=== PATIENT | female | born 1980 | race African-American/Black ===

== ENCOUNTER 2020-12-01 03:02 | Outpatient (CLI) | payer OTHER ==
[~2020-12-01] VITALS: Ht 165.1 cm; Wt 74.6 kg
[2020-12-01 03:21] VITALS: BP 115/76
[2020-12-01] MEDS ORDERED: MULTTAB20 PO (04:17)
[2020-12-01] MEDS ORDERED: DICL10TA PO (04:17)
[2020-12-01] MEDS ORDERED: LR 1,000 ML IV ONE (04:20)
[2020-12-01] MEDS ORDERED: LR 1,000 ML IV SCH (04:20)
[2020-12-01 05:21] LABS: HEMATOCRIT 34.4 % (36.0-47.0); HEMOGLOBIN 10.3 g/dl (12.0-15.5); MEAN CORPUSCULAR HEMOGLOBIN 25.2 pg (27.0-33.0); MEAN CORPUSCULAR HGB CONC 29.9 g/dl (32.0-36.5); MEAN CORPUSCULAR VOLUME 84.3 fl (80.0-96.0); PLATELET COUNT, AUTOMATED 225 10^3/uL (150-450); RED BLOOD COUNT 4.08 10^6/uL (4.00-5.40); WHITE BLOOD COUNT 9.3 10^3/uL (4.0-10.0)
[2020-12-01 06:13] VITALS: BP 102/60
[2020-12-01 07:05] VITALS: BP 128/78
[2020-12-01] MEDS ORDERED: TERBUTALINE SULFATE 1 MG/ML VIAL (J3105) SC ONE (07:25)
[2020-12-01 07:40] VITALS: BP 108/70
[2020-12-01 08:51] VITALS: BP 120/68
== END 2020-12-01 09:10 | disposition home or self-care (01) ==
LOC: M LDO 03:02
PROVIDERS: ATTEND Obstetrics & Gynecology
DX: O99.283 Endocrine, nutritional and metabolic diseases complicating pregnancy, third trimester (principal); E86.0 Dehydration; O26.893 Other specified pregnancy related conditions, third trimester; R10.30 Lower abdominal pain, unspecified; R25.2 Cramp and spasm; Z3A.35 35 weeks gestation of pregnancy; O09.523 Supervision of elderly multigravida, third trimester
CPT/HCPCS: 59025; 76815; 81001; 85027; 96360; 96361; G0378; G0463; J3105

== ENCOUNTER 2020-12-12 04:17 | Inpatient (IN) | payer OTHER ==
[2020-12-12] VITALS (49 sets, daily range): BP systolic 98–149; BP diastolic 57–92
[~2020-12-12] VITALS: Ht 165.1 cm; Wt 76.8 kg
[~2020-12-12 04:17] MED LIST: DICL10TA PO; MULTTAB20 PO
[2020-12-12] MEDS ORDERED: LR 1,000 ML IV SCH (05:40)
[2020-12-12 06:19] LABS: HEMATOCRIT 35.3 % (36.0-47.0); HEMOGLOBIN 10.5 g/dl (12.0-15.5); MEAN CORPUSCULAR HEMOGLOBIN 24.8 pg (27.0-33.0); MEAN CORPUSCULAR HGB CONC 29.7 g/dl (32.0-36.5); MEAN CORPUSCULAR VOLUME 83.5 fl (80.0-96.0); PLATELET COUNT, AUTOMATED 218 10^3/uL (150-450); RED BLOOD COUNT 4.23 10^6/uL (4.00-5.40); WHITE BLOOD COUNT 11.4 10^3/uL (4.0-10.0)
[2020-12-12] MEDS ORDERED: BUTORPHANOL 2 MG/ML INJ (J0595) IV PRN (08:10)
[2020-12-12] MEDS ORDERED: PROMETHAZINE INJ 25 MG/ML VIAL (J2550) IV PRN (08:10)
[2020-12-12] MEDS ORDERED: OXYTOCIN DRIP 30 UNITS in IV 1 EA IV SCH (08:10)
--- NOTE | 2020-12-12 08:27 | IPNPDOC ---
Text Note Date of Service The patient was seen on 12/12/20. NOTE Intrapartum Note I assumed care of Pio at 0730 this morning. In brief, she is a 40yo at 37w4d who presented with PROM at 0330 this morning, clear. She has a history of prior section for arrest of dilation at 41wk in 2008 and desires a TOLAC after counseling on admission by RAFIA Kraus. Her PMhx is otherwise unremarkable. It has been approximately 5hr since ROM and she is not yet having regular ctx. Not uncomfortable. Fluid remains clear. Vitals wnl, afebrile SCE: fingertip/thick/-3, posterior Cat I FHRT with +accels/-decels/mod janina I discussed patient's SCE with her in the setting of desired TOLAC. Discussed that we need to start augmenting her labor given the risk for infection now that she has ROM. Discussed we canNOT use cytotec and cannot yet place grullon bulb based on her dilation. My recommendation is to begin pitocin which patient is amenable to. Discussed options for pain control, IV pain medications in latent labor and epidural in active labor. Answered all of her questions. Safe to proceed Linda Leslie MD VSHeather, I+O VSHeather I+O Laboratory Tests 12/12/20 05:32 Vital Signs Date Time Temp Pulse Resp B/P (MAP) Pulse Ox O2 Delivery O2 Flow Rate FiO2 12/12/20 07:23 97.3 75 16 126/78 (94) Room Air Linda Leslie MD Dec 12, 2020 08:27
--- NOTE | 2020-12-12 09:21 | HPE ---
HISTORY AND PHYSICAL DATE OF ADMISSION: 12/12/2020 HISTORY OF PRESENT ILLNESS: Pio is a 40-year-old 2 para 1-0-0-1 at 37 and 3/7th weeks gestation, EDC of 12/30/2020 based on first trimester ultrasound. She presents to Labor and Delivery today as an unregistered patient. Her care is provided at [facility] in [place], [place]. She reports that she had spontaneous rupture of membranes at approximately 0300 for clear fluid. She reports contractions have just started in the last hour. She denies having vaginal bleeding. She does report continued leakage of fluid and the fetus has been active. Her care was initiated at [facility] in the first trimester. Her course complicated by advanced maternal age and prior section. The plan was for a repeat section at term as [facility] does not participate in trial of labor after until most recently when she decided she preferred a trial of labor after section. OBSTETRIC HISTORY: 07/30/2009: Primary section for failure to progress delivering an 8 pound male at 41 weeks gestation. OBSTETRIC LABS: O positive, antibody screen negative, Pap was normal, rubella immune, VDRL nonreactive, hepatitis B surface antigen negative, HIV negative, chlamydia and gonorrhea negative. Gestational diabetic screening elevated at 148. A three hour glucose tolerance test normal. Fasting was 79, 1 hour 138, 2 hour 107, and 3 hour of 100. Her GBS is negative. I do not see a hepatitis C antibody ordered or received. PAST MEDICAL HISTORY: Childhood varicella. PAST SURGICAL HISTORY: section. FAMILY HISTORY: Cerebrovascular accident, gastrointestinal cancer and ovarian cancer. SOCIAL HISTORY: The patient is single, however the father of the baby is at bedside and supportive. 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 She is nonsmoker. She denies alcohol and drug use. She does report a positive history of an abnormal Pap with HPV. She denies a history of abuse, physical, sexual and emotional. ALLERGIES: No known drug allergies. CURRENT MEDICATIONS: 1. Diclegis. 2. vitamin. OBJECTIVE: Temperature is 97.3, pulse 81, blood pressure is 117/73. She appears mildly uncomfortable with her contractions. She does grimace with each contraction. heart rate is 130 with moderate variability and positive accelerations, negative decelerations, contractions are every 4 hours. They do palpate mild. Her abdomen is gravid, cephalic presentation, confirmed with Dashawn's maneuver as well as bedside ultrasound. Estimated weight 6.5 pounds. Sterile speculum exam deferred as the patient is grossly ruptured leaking clear fluid continuously. Sterile vaginal exam: The patient does not tolerate the exam well, the presenting part is -3 station and the cervix is far posterior, unable to be determined due to the patient's resistance and discomfort with her exam. ASSESSMENT: Intrauterine at 37 and 3/7th weeks. heart rate Category 1, spontaneous rupture of membranes, trial of labor after section. PLAN: After reviewing risks, benefits and alternatives with the patient, she and her partner had all of their questions answered regarding trial of labor after sections. The patient still continues to desire trial of labor after section. Routine labs have been ordered, continuous electronic monitoring, NPO diet at this time. The patient may be out of bed and use bathroom privileges. She has been verbally consented for emergency surgery and blood products if they are necessary. Will observe for labor progress at this time.
[2020-12-12] MEDS ORDERED: FENTANYL 2MCG/ML ROPIVACAINE 0.2% IN 0.9% NACL 100ML IVBAG As Ordered ONE (16:07)
[2020-12-12] MEDS: FENTANYL/ROPIVACAINE/NACL BAG 100 ML EPIDURAL SCH (16:27)
[2020-12-12] MEDS ORDERED: NALOXONE INJ 0.4MG/1ML VIAL (J2310 PER 1MG) IV PRN (16:55)
[2020-12-12] MEDS ORDERED: EPIDURAL/PCA KEYS XX PRN (16:55)
[2020-12-12] MEDS ORDERED: REFRIGERATOR IV KEYS XX PRN (16:55)
[2020-12-12] MEDS ORDERED: EPIDURAL COMMENT XX SCH (16:55)
[2020-12-12] MEDS ORDERED: ePHEDrine SULFATE 25 MG/5 ML(5MG/ML) SYRINGE IV PRN (16:55)
[2020-12-12] MEDS ORDERED: diphenhydrAMINE 50MG/ML VIAL (J1200) IV PRN (16:55)
[2020-12-12] MEDS ORDERED: LACTATED RINGER'S 1000 ML IV PRN (16:55)
--- NOTE | 2020-12-12 17:32 | IPNPDOC ---
Text Note Date of Service The patient was seen on 12/12/20. NOTE Intrapartum Note Pt doing well now that she received epidural and has good pain relief. Fluid remains clear. IV pitocin is at 12mu. Receiving 300ml IVF bolus for some minimal variability on FHRT, otherwise there are accels and no decels. SCE now 3-4/75/-2, hair palpable. Plan to continue to titrate pitocin per protocol Will continue to closely observe Plan to recheck in 4hr or earlier as indicated Safe to proceed Linda Leslie MD VS,Heather, I+O VSHeather I+O Laboratory Tests 12/12/20 05:32 Vital Signs Date Time Temp Pulse Resp B/P (MAP) Pulse Ox O2 Delivery O2 Flow Rate FiO2 12/12/20 16:45 78 116/74 (88) 12/12/20 16:02 16 12/12/20 15:08 97.4 Room Air 12/12/20 14:43 82 Linda Leslie MD Dec 12, 2020 17:32
[2020-12-12] MEDS ORDERED: CALCIUM CARBONATE 500 MG CHEW U/D PO ONE (19:50)
[2020-12-12] MEDS ORDERED: PYRIDOXINE 50 MG TAB PO SCH (22:40)
[2020-12-12] MEDS: ONDANSETRON 4MG/2ML VIAL IV PRN (22:42)
--- NOTE | 2020-12-12 23:08 | IPNPDOC ---
Text Note Date of Service The patient was seen on 12/12/20. NOTE Intrapartum Note Pt doing well overall. Recently had an episode of emesis. Pain well controlled with epidural. Vitals wnl overall, afebrile Cat I FHRT with +accels, -decels, mod janina [place]: ctx q2-3min SCE: /-2, bloody show noted Will plan to continue to titrate pitocin for adequate ctx pattern IV zofran and oral vitamin B6 for nausea Continue to closely monitor Plan to recheck in 2-4hr or earlier as indicated Safe to proceed Linda Leslie MD VS,Heather I+O VS, Augustina Romero+O Laboratory Tests 12/12/20 05:32 Vital Signs Date Time Temp Pulse Resp B/P (MAP) Pulse Ox O2 Delivery O2 Flow Rate FiO2 12/12/20 17:46 83 98/60 (73) 12/12/20 16:02 16 12/12/20 15:08 97.4 Room Air 12/12/20 14:43 82 Linda Leslie MD Dec 12, 2020 23:08
[2020-12-13] VITALS (28 sets, daily range): BP systolic 109–141; BP diastolic 61–98
[2020-12-13] MEDS: FENTANYL/ROPIVACAINE/NACL BAG 100 ML EPIDURAL SCH ×2 (00:22→10:29)
[2020-12-13] MEDS: ONDANSETRON 4MG/2ML VIAL IV PRN (03:29)
--- NOTE | 2020-12-13 04:52 | IPNPDOC ---
Text Note Date of Service The patient was seen on 12/13/20. NOTE Intrapartum Note Pio is doing well, pain still overall well controlled with epidural. By nurse check at 0330 was 9/C/0. Vitals wnl, afebrile Cat I FHRT with +accels, -decels, mod janina [place]: ctx q4min SCE: C/C/0, bladder grullon balloon pushed up past head to allow descent Plan to do passive descent x1hr and then begin pushing Continue pitocin to titrate to adequate MVUs Continue to closely monitor Safe to proceed Linda Leslie MD VS,Heather, I+O VS, Heather I+O Laboratory Tests 12/12/20 05:32 Vital Signs Date Time Temp Pulse Resp B/P (MAP) Pulse Ox O2 Delivery O2 Flow Rate FiO2 12/13/20 04:05 108 117/61 (79) 12/13/20 04:00 98.4 12/13/20 03:59 18 12/12/20 15:08 Room Air 12/12/20 14:43 82 I&O- Last 24 Hours up to 6 AM 12/13/20 06:00 Intake Total 0 ml Output Total 1500 ml Balance -1500 ml Linda Leslie MD Dec 13, 2020 04:51
--- NOTE | 2020-12-13 08:56 | IPNPDOC ---
Text Note Date of Service The patient was seen on 12/13/20. NOTE Progress Has been pushing x 3 hours plus one hour labor down No descent of presenting part with poor maternal efforts, -1 station FH 150, Cat I UC 2-4 minutes x [address] Grider. Dr Zavala in building and aware of pt status VS,Fishbone, I+O VS, Fishbone, I+O Vital Signs Date Time Temp Pulse Resp B/P (MAP) Pulse Ox O2 Delivery O2 Flow Rate FiO2 12/13/20 07:27 94 130/81 (97) 12/13/20 06:00 98.9 18 12/12/20 15:08 Room Air 12/12/20 14:43 82 I&O- Last 24 Hours up to 6 AM 12/13/20 05:59 Intake Total 1100 ml Output Total 1500 ml Balance -400 ml Virgie Thakkar CNM Dec 13, 2020 08:56
[2020-12-13] MEDS ORDERED: TRANEXAMIC ACID INJection 1,000 MG in NS 100 ML IV PRN (10:15)
[2020-12-13] MEDS ORDERED: BICITRA 30ML SOLN UDC PO ONE (10:15)
[2020-12-13] MEDS ORDERED: CARBOPROST TROMETHAMINE 250 MCG/ML AMP IM PRN (10:15)
[2020-12-13] MEDS ORDERED: ceFAZolin SOD 2 GM in IV 1 EA IV ONE (10:15)
[2020-12-13] MEDS ORDERED: OXYTOCIN DRIP 30 UNITS in IV 1 EA IV PRN ×6 (10:15)
[2020-12-13] MEDS ORDERED: LIDOCAINE 1% MDV 20ML VIAL INFIL PRN (10:15)
[2020-12-13] MEDS ORDERED: OXYTOCIN INJ 10 UNITS/ML VIAL (J2590) IM PRN (10:15)
[2020-12-13] MEDS ORDERED: AZITHROMYCIN INJ 500 MG, VIAL MATE ADAPTER 1 EACH in NS 250 ML IV ONE (10:15)
[2020-12-13] MEDS ORDERED: METHYLERGONOVINE MALEATE 0.2 MG/ML VIAL (J2210) IM PRN (10:15)
[2020-12-13] MEDS ORDERED: OXYTOCIN INJ 10 UNITS/ML VIAL (J2590) IV PRN (10:15)
[2020-12-13] MEDS ORDERED: BICITRA 30ML SOLN UDC As Ordered ONE (10:21)
[2020-12-13] MEDS ORDERED: ceFAZolin 2 GM/D5W 50 ML IV BAG (J0690 PER 500MG) As Ordered ONE (10:21)
[2020-12-13] MEDS ORDERED: LIDOCAINE 2% W/EPINEPHRINE 20ML VIAL **PRES FREE As Ordered ONE (10:48)
[2020-12-13] MEDS ORDERED: MORPHINE PRES-FREE INJ 10 MG/10 ML VIAL (J2274) As Ordered ONE (10:48)
[2020-12-13] MEDS ORDERED: ONDANSETRON 4MG/2ML VIAL As Ordered ONE (10:48)
[2020-12-13] MEDS ORDERED: FAMOTIDINE/NS 20 MG/50 ML BAG (S0028) As Ordered ONE (10:49)
[2020-12-13] MEDS ORDERED: METOCLOPRAMIDE INJ 10MG/2ML VIAL (J2765 PER 1) IV PRN ×2 (11:08→12:25)
[2020-12-13] MEDS ORDERED: NALBUPHINE HCL 10 MG/ML AMP (J2300) IV PRN (11:08)
[2020-12-13] MEDS ORDERED: NALOXONE INJ 0.4MG/1ML VIAL (J2310 PER 1MG) IV PRN ×2 (11:08)
[2020-12-13] MEDS ORDERED: ONDANSETRON 4MG/2ML VIAL IV PRN ×3 (11:08→12:25)
[2020-12-13] MEDS ORDERED: ACETAMINOPHEN 1000MG 100ML IV BTL (OFIRMEV) (J0131 PER 10MG) As Ordered ONE (11:17)
[2020-12-13] MEDS ORDERED: OXYTOCIN DRIP 30 UNITS in IV 1 EA IV SCH (11:58)
[2020-12-13 11:59] LABS: CORD GAS ABE V -5.9; CORD GAS O2 SAT V 59.1 %; CORD GAS PCO2 V 58.5 mmHg; CORD GAS PH V 7.212 UNITS; CORD GAS SBC V 18.8 MEQ/L; CORD GAS TCO2 V 24.8 MEQ/L
[2020-12-13] MEDS ORDERED: RHOGAM 300 MCG (1500 IU) INJ (J2790) IM SCH (12:00)
[2020-12-13] MEDS ORDERED: MEASLES,MUMPS,RUBELLA VACCINE INJ (MMR-II) (90707) SC SCH (12:00)
[2020-12-13] MEDS ORDERED: PERCOCET 5MG/325MG TAB PO PRN ×2 (12:00)
[2020-12-13] MEDS ORDERED: OXYTOCIN 30 UNITS IN 0.9% NaCl 500ML IV BAG (J2590) As Ordered ONE (12:02)
--- NOTE | 2020-12-13 12:20 | ROOPDOC ---
[facility] Report Of Operation Report of Operation DATE OF PROCEDURE: 12/13/2020 PREPROCEDURE DIAGNOSES:. Arrest of descent, 37+ weeks gestation, prolonged rupture of membranes, unsuccessful trial of labor after POSTPROCEDURE DIAGNOSES: Same PROCEDURE: Repeat low transverse section SURGEON: Didier Grider DO FACOG ENGRAVER RUBBER: Rodney Kraus CNM (Essential role in retraction, extraction, and closure of all tissue layers) ANESTHESIA: Epidural ESTIMATED BLOOD LOSS: 500 mL. IV FLUIDS: 1300 mL LR URINE OUTPUT: 150 mL COMPLICATIONS: None. PREOPERATIVE ANTIBIOTICS: Ancef 2g IV x 1, Azithromycin 500mg IV COMPLICATIONS: none DATA: Apgars 2 and 9. Birthweight 2778 g. 6lbs 2oz. Male. SPECIMENS: none PRIMARY INDICATION FOR : Arrest of descent DESCRIPTION OF PROCEDURE: The patient was counseled on the risks, benefits, indications and alternatives of the procedure. Informed consent was obtained. She was taken to the operating room with IV running and placed on the operating table in the dorsal supine position with a leftward tilt. Regional anesthesia was found to be adequate. Sequential compression devices were placed on the lower extremities. A Garnica catheter was placed under sterile conditions. She was prepared and draped in normal sterile fashion. A time out was performed per protocol. Regional anesthesia was again found to be adequate. A Pfannenstiel skin incision was made with the 10 blade. The 10 blade was used to dissect down to the level of the rectus sheath fascia. The rectus sheath pressure was incised midline and this was extended bilaterally with Summers scissors , and manual stretch. The rectus muscle bellies were dissected off the rectus sheath fascia superiorly and inferiorly using both sharp and blunt dissection. The midline was identified. The peritoneum was identified and entered digitally. The peritoneal opening was extended with manual stretch. The Mobius retractor was placed. The vesicouterine peritoneum was dissected with Metzenbaum scissors to create the bladder flap. A low transverse uterine incision was made with the 10 blade. This was extended with manual stretch. The amniotic sac was punctured, and clear fluid was noted. The baby delivered through the hysterotomy without difficulty. The cord was doubly clamped and cut, and the baby was handed off to awaiting care. data shown above. The placenta was removed manually. Cord gas obtained after the delivery of the placenta. A brisk uterine arterial bleed was noted on the right side, and this was quickly clamped. The intrauterine cavity was cleared of all clot and debris. The hysterotomy was closed with 0 Vicryl in running locked fashion. This was reinforced with a second imbricating layer using 0 Monocryl in running fashion. Excellent hemostasis of the hysterotomy was noted. The pelvis was irrigated and the fluid suctioned. The Mobius retractor was removed. The peritoneum was closed with 3-0 Vicryl running fashion. The rectus muscle bellies were reapproximated with interrupted stitches using 3-0 Vicryl. The rectus muscles bellies were hemostatic. The rectus sheath fascia was closed with 0 Vicryl running fashion. The subcutaneous layer was irrigated and the fluid suctioned. Small bleeding vessels were cauterized with Bovie. Excellent hemostasis was noted. The subcutaneous layer was reapproximated with 3-0 Vicryl running fashion. Skin was closed with 3-0 Monocryl in subcuticular fashion. An Optifoam bandage was placed over the closed incision. Sponge, needle and instrument counts were correct per protocol throughout the procedure. The patient tolerated the entire procedure very well. She was transferred to the PACU in stable condition. DO JAIME Stein JONATHAN R. DO Dec 13, 2020 12:20
[2020-12-13] MEDS ORDERED: fentaNYL 100 MCG/2 ML INJECTION (J3010) As Ordered ONE (12:22)
[2020-12-13] MEDS ORDERED: oxyCODONE 5MG TAB PO PRN (12:25)
[2020-12-13] MEDS ORDERED: KETOROLAC 30 MG/ML 1ML VIAL IV PRN (12:25)
[2020-12-13] MEDS ORDERED: MEPERIDINE INJ 25 MG/ML VIAL (J2175) IV PRN (12:25)
[2020-12-13] MEDS ORDERED: LR 1,000 ML IV SCH (12:25)
[2020-12-13] MEDS: fentaNYL 100 MCG/2 ML INJECTION (J3010) IV PRN ×4 (12:27→13:07)
[2020-12-13] MEDS ORDERED: KETOROLAC 30 MG/ML 1ML VIAL As Ordered ONE (12:36)
[2020-12-13] MEDS: diphenhydrAMINE 50MG/ML VIAL (J1200) IV PRN ×2 (14:18→22:57)
[2020-12-13] MEDS ORDERED: IBUP80TA PO (15:55)
[2020-12-13] MEDS ORDERED: PERCOCET PO (15:55)
[2020-12-13] MEDS ORDERED: DOK1CAP7 PO (15:55)
[2020-12-13] MEDS: KETOROLAC 30 MG/ML 1ML VIAL IV SCH (18:14)
[2020-12-13] MEDS: DOCUSATE SODIUM 100MG CAPSULE PO SCH (21:07)
[2020-12-13] MEDS: SIMETHICONE 80MG CHEW TAB PO PRN (21:46)
[2020-12-14] MEDS: KETOROLAC 30 MG/ML 1ML VIAL IV SCH ×2 (00:20→06:00)
[2020-12-14 02:00] VITALS: BP 97/58
[2020-12-14 05:50] VITALS: BP 121/71
[2020-12-14] MEDS ORDERED: diphenhydrAMINE CREAM 30GM TOP PRN (07:10)
--- NOTE | 2020-12-14 07:14 | IPNPDOC ---
Text Note Date of Service The patient was seen on 12/14/20. NOTE PO #1 Major complaint is itching. Reports adequate pain management. Has been OOB to NICU. Grullon draining clear yellow urine. Denies flatus. VSS, afebrile, normotensive. Breasts soft, nipples intact Fundus firm, NT Dressing intact, scant old drainage Lochia rubra scant without odor Legs negative PO#1 Claritin daily with benadryl cream to reduce sleepiness. Remove grullon. Slowly increase diet. Routine care. VS,Fishbone, I+O VS, Fishbone, I+O Vital Signs Date Time Temp Pulse Resp B/P (MAP) Pulse Ox O2 Delivery O2 Flow Rate FiO2 12/14/20 05:50 97.5 101 18 121/71 (88) 100 Room Air I&O- Last 24 Hours up to 6 AM 12/14/20 06:00 Intake Total 1990 ml Output Total 1770 ml Balance 220 ml Virgie Thakkar CNM Dec 14, 2020 07:14
[2020-12-14 07:55] LABS: HEMOGLOBIN 8.2 g/dl (12.0-15.5); MEAN CORPUSCULAR HEMOGLOBIN 25.4 pg (27.0-33.0); MEAN CORPUSCULAR HGB CONC 30.4 g/dl (32.0-36.5); MEAN CORPUSCULAR VOLUME 83.6 fl (80.0-96.0); PLATELET COUNT, AUTOMATED 188 10^3/uL (150-450); RED BLOOD COUNT 3.23 10^6/uL (4.00-5.40); WHITE BLOOD COUNT 15.2 10^3/uL (4.0-10.0)
[2020-12-14 10:00] VITALS: BP 108/64
[2020-12-14] MEDS: SIMETHICONE 80MG CHEW TAB PO PRN ×3 (10:10→22:23)
[2020-12-14] MEDS: PRENATAL VITAMINS CHEWABLE TABLET PO SCH (10:10)
[2020-12-14] MEDS: DOCUSATE SODIUM 100MG CAPSULE PO SCH ×2 (10:10→20:33)
[2020-12-14] MEDS: LORATADINE 10 MG TAB PO SCH (10:24)
[2020-12-14] MEDS: IBUPROFEN 800 MG TAB PO SCH ×2 (13:30→20:33)
[2020-12-14 14:00] VITALS: BP 111/66
[2020-12-14] MEDS: ACETAMINOPHEN 500 MG TAB PO PRN (17:52)
[2020-12-14 18:00] VITALS: BP 118/71
[2020-12-14 21:46] VITALS: BP 107/59
[2020-12-15 02:01] VITALS: BP 128/61
[2020-12-15] MEDS ORDERED: OXYTOCIN 30 UNITS IN 0.9% NaCl 500ML IV BAG (J2590) As Ordered ONE (05:55)
[2020-12-15] MEDS: IBUPROFEN 800 MG TAB PO SCH ×3 (06:04→22:05)
[2020-12-15 06:12] VITALS: BP 119/65
--- NOTE | 2020-12-15 08:42 | DS.PDOC ---
Discharge Summary General Date of Admission Dec 12, 2020 at 04:57 Date of Discharge 12/15/20 Vital Signs/I&Os Vital Signs Date Time Temp Pulse Resp B/P (MAP) Pulse Ox O2 Delivery O2 Flow Rate FiO2 12/15/20 06:12 97.8 77 18 119/65 (83) 98 12/15/20 02:01 Room Air I&O- Last 24 Hours up to 6 AM 12/15/20 06:00 Output Total 400 ml Balance -400 ml Discharge Medications Scheduled Docusate Sodium (Dok) 100 Mg Capsule, 100 MG PO BID Ibuprofen (Ibuprofen) 800 Mg Tablet, 800 MG PO Q8H No122/Iron/Folic Acid ( Multi Tablet) 1 Each Tablet, 1 TAB PO DAILY, (Reported) Scheduled PRN Oxycodone/Acetaminophen (Oxycodone-Acetaminophen 5-325) 1 Each Tablet, 1 TAB PO Q4H PRN for MILD/MODERATE PAIN (PS 1-7) Allergies Coded Allergies: No Known Allergies (Unverified , 12/01/20) YASMIN LEWIS DO Dec 15, 2020 08:42
--- NOTE | 2020-12-15 09:33 | IPNPDOC ---
Progress Note Date of Service: Dec 15, 2020 Day#: 2 Progress Note SUBJECT: Status post PLTCS She has been ambulating, voiding spontaneously without issue and tolerating regular diet. Lochia decreasing/minimal. Pain is well-controlled. Incision bandage is clean/unsaturated. Denies headache, visual changes, right upper quadrant pain, shortness of breath or chest pain. OBJECTIVE: VITAL SIGNS: Within normal limits, afebrile. Alert and oriented times three. Abdomen: Fundus firm at U-2. Soft, NTTP. Incision bandage not soaked through ASSESSMENT: Status post uncomplicated PLTCS. Vitals within normal limits, afebrile, hemodynamically stable with no evidence of infection. PLAN: Discharge to home tomorrow Routine /postoperative advancement Postoperative instructions/precautions reviewed. Routine PP visit at 2 and 6 weeks in clinic. VS, I&O, 24H, Fishbone Vital Signs/I&O Vital Signs Date Time Temp Pulse Resp B/P (MAP) Pulse Ox O2 Delivery O2 Flow Rate FiO2 12/15/20 06:12 97.8 77 18 119/65 (83) 98 12/15/20 02:01 Room Air I&O- Last 24 Hours up to 6 AM 12/15/20 06:00 Output Total 400 ml Balance -400 ml Laboratory Data 24H LABS Vital Signs Date Time Temp Pulse Resp B/P (MAP) Pulse Ox O2 Delivery O2 Flow Rate FiO2 12/15/20 06:12 97.8 77 18 119/65 (83) 98 12/15/20 02:01 97.8 96 19 128/61 (83) 99 Room Air 12/14/20 22:53 15 12/14/20 22:23 17 12/14/20 21:46 98.6 95 18 107/59 (75) 99 Room Air 12/14/20 18:00 99.0 109 18 118/71 (87) 100 Room Air 12/14/20 14:00 98.5 103 17 111/66 (81) 100 Room Air 12/14/20 10:00 97.9 102 15 108/64 (79) 98 Room Air Intake & Output 12/15/20 06:00 Output Total 400 ml Balance -400 ml Current Medications Medications (Trade) Dose Ordered Sig/Latonya Route PRN Reason Start Time Stop Time Status Last Admin Dose Admin Acetaminophen (Tylenol Tab) 1,000 mg Q6HP PRN PO PAIN LEVEL 6-10 12/13/20 12:00 12/14/20 17:52 1,000 MG Diphenhydramine HCl (Benadryl Cream) Q6HP PRN TOP ITCHING 12/14/20 07:10 12/14/20 10:10 1 DOSE Docusate Sodium (Colace) 100 mg BID PO 12/13/20 21:00 12/14/20 20:33 100 MG Ibuprofen (Advil) 800 mg Q8H PO 12/14/20 14:00 12/15/20 06:04 800 MG Loratadine (Claritin) 10 mg DAILY PO 12/14/20 09:00 12/14/20 10:24 10 MG Oxycodone/ Acetaminophen (Percocet 5mg/ 325mg Tablet) 1 tab Q4H PRN PO MILD/MODERATE PAIN (PS 1-7) 12/13/20 12:00 12/14/20 22:23 1 TAB Prenat Multivit/ Thread Grinder/Iron/Folic Ac ( Vitamins) 1 tab DAILY PO 12/14/20 09:00 12/14/20 10:10 1 TAB Simethicone (Mylicon) 80 mg QID PRN PO GAS PAIN 12/13/20 12:00 12/14/20 22:23 80 MG CBC/BMP Laboratory Tests 12/14/20 07:36 YASMIN LEWIS DO Dec 15, 2020 09:33
[2020-12-15] MEDS: ACETAMINOPHEN 500 MG TAB PO PRN (09:41)
[2020-12-15] MEDS: PRENATAL VITAMINS CHEWABLE TABLET PO SCH (09:42)
[2020-12-15] MEDS: LORATADINE 10 MG TAB PO SCH (09:42)
[2020-12-15] MEDS: DOCUSATE SODIUM 100MG CAPSULE PO SCH ×2 (09:42→22:06)
[2020-12-15] MEDS: SIMETHICONE 80MG CHEW TAB PO PRN ×2 (09:42→22:05)
[2020-12-15 10:00] VITALS: BP 110/74
[2020-12-16 06:00] VITALS: BP 115/67
[2020-12-16] MEDS: IBUPROFEN 800 MG TAB PO SCH ×2 (06:43→14:34)
--- NOTE | 2020-12-16 07:11 | DS.PDOC ---
Discharge Summary General Date of Admission Dec 12, 2020 at 04:57 Date of Discharge 12/16/20 Discharge Summary DATE OF ADMISSION: 12/12/2020 DATE OF DISCHARGE: 12/16/2020 ADMISSION DIAGNOSIS:. 37+ weeks gestation, prelabor rupture of membranes DISCHARGE DIAGNOSIS: Same as above, prolonged rupture of membranes, arrest of descent in the second stage of labor, status post primary low transverse section DISCHARGE SUMMARY: The patient was admitted at, 37+ weeks gestation with a diagnosis of pre-labor rupture of membranes.. Her labor course was complicated by arrest of descent in the second stage of labor and prolonged rupture of membranes. This prompted a section. The section delivery was uncomplicated. Her postoperative course was uncomplicated as well. On posto perative day #3, she was meeting all discharge criteria. PHYSICAL EXAMINATION ON DATE OF DISCHARGE: Normotensive. Normal heart rate. Afebrile. HEART: Regular rate and rhythm. No murmurs, gallops, or rubs. LUNGS: Clear to auscultation bilaterally. ABDOMEN: Soft, nontender, nondistended. Incision bandage clean and dry. EXTREMITIES: Nonedematous, nontender. She was meeting all discharge criteria on postoperative day #3. We reviewed routine fever, infectious, pain, and bleeding precautions. She is to followup in 2 weeks for incision check. Her postoperative medications are Percocet, Motrin, and Colace. Vital Signs/I&Os Vital Signs Date Time Temp Pulse Resp B/P (MAP) Pulse Ox O2 Delivery O2 Flow Rate FiO2 12/16/20 06:00 98.0 72 18 115/67 (83) 12/15/20 10:00 100 Room Air I&O- Last 24 Hours up to 6 AM 12/16/20 06:00 Intake Total 400 ml Balance 400 ml Discharge Medications Scheduled Docusate Sodium (Dok) 100 Mg Capsule, 100 MG PO BID Ibuprofen (Ibuprofen) 800 Mg Tablet, 800 MG PO Q8H No122/Iron/Folic Acid ( Multi Tablet) 1 Each Tablet, 1 TAB PO DAILY, (Reported) Scheduled PRN Oxycodone/Acetaminophen (Oxycodone-Acetaminophen 5-325) 1 Each Tablet, 1 TAB PO Q4H PRN for MILD/MODERATE PAIN (PS 1-7) Allergies Coded Allergies: No Known Allergies (Unverified , 12/01/20) YASMIN ELWIS DO Dec 16, 2020 07:11
[2020-12-16] MEDS: DOCUSATE SODIUM 100MG CAPSULE PO SCH (08:57)
[2020-12-16] MEDS: LORATADINE 10 MG TAB PO SCH (08:57)
[2020-12-16] MEDS: PRENATAL VITAMINS CHEWABLE TABLET PO SCH (08:57)
== END 2020-12-16 15:28 | disposition home or self-care (01) | DRG 540 ==
LOC: M LDO 04:17 → M LDI 04:57 → M OBS 12-13 13:58
PROVIDERS: ADMIT Advanced Practice Midwife; ATTEND Advanced Practice Midwife
PROC: 10D00Z1 Extraction of Products of Conception, Low, Open Approach (ICD-10-PCS; principal; 2020-12-13 11:01)
DX: O42.12 Full-term premature rupture of membranes, onset of labor more than 24 hours following rupture (principal); Z3A.37 37 weeks gestation of pregnancy; O34.211 Maternal care for low transverse scar from previous cesarean delivery; O66.41 Failed attempted vaginal birth after previous cesarean delivery; O62.1 Secondary uterine inertia; Z37.0 Single live birth

== ENCOUNTER → 2021-02-28 | Outpatient (REF) | payer OTHER ==
[~2021-02-28] MED LIST changes: +DOK1CAP7 PO; +IBUP80TA PO; +PERCOCET PO
== END ==
LOC: M PLALAB 12:06
PROVIDERS: ATTEND Obstetrics & Gynecology
DX: Z39.2 Encounter for routine postpartum follow-up (principal)